=== PATIENT | female | born 1965 ===

== ENCOUNTER 2018-12-02 11:57 | Emergency (ER) | payer BC ==
[~2018-12-02] VITALS: Ht 160 cm; Wt 48.1 kg
[2018-12-02] MEDS ORDERED: SYNTHROID75 MCG (12:13)
== END 2018-12-02 16:17 | disposition home or self-care (01) ==
LOC: ER 11:57
DX: S01.122A Laceration with foreign body of left eyelid and periocular area, initial encounter (principal); S00.33XA Contusion of nose, initial encounter; W01.118A Fall on same level from slipping, tripping and stumbling with subsequent striking against other sharp object, initial encounter; Y93.89 Activity, other specified; Y92.89 Other specified places as the place of occurrence of the external cause; Y99.8 Other external cause status